=== PATIENT | male | born 1975 | race Caucasian/White ===

== ENCOUNTER 2018-02-11 18:10 | Emergency (ER) | payer OTHER, MEDICAID, SELFPAY ==
[2018-02-11 18:20] VITALS: BP 136/78; PULSE 98; RESP 14; TEMP 36.7; O2SAT 99
--- NOTE | 2018-02-11 18:26 | ED.URI ---
HPI - URI/Sore Throat <IMAN Rajput - Last Filed: 02/11/18 19:54> General Chief Complaint: Upper Respiratory Symptoms Stated Complaint: coughed so hard he vomited,thinks he has streep Time Seen by Provider: 02/11/18 18:31 Source: patient Limitations: no limitations History of Present Illness HPI Narrative: 43-year-old male here for complaint of having cough for the last 3 days. He also states that he has a sore throat. He is concerned that he might have strep throat as he was exposed to a child that was diagnosed with strep throat over the past week and a half. Positive p.o. intake. No nasal congestion. No fevers or chills. He denies any other concerns or complaints. MD Complaint: cough and sore throat Related Data Home Medications Medication Instructions Recorded Confirmed mirtazapine #0 07/15/17 venlafaxine [Effexor XR] #0 07/15/17 Allergies Allergy/AdvReac Type Severity Reaction Status Date / Time No Known Drug Allergies Allergy Verified 02/11/18 18:26 Review of Systems <IMAN Rajput - Last Filed: 02/11/18 19:54> Constitutional Denies chills, Denies fever(s), Denies lethargy and Denies weakness Eyes Denies change in vision, Denies eye discharge, Denies irritation and Denies loss of vision ENT Ears, Nose, Mouth, and Throat: Reports sore throat Cardiovascular Denies chest pain, Denies irregular heart rhythm, Denies lightheadedness, Denies palpitations and Denies orthopnea Respiratory Reports cough Gastrointestinal Gastrointestinal: Denies abdominal pain, Denies change in bowel habits, Denies diarrhea, Denies nausea and Denies vomiting Genitourinary Denies hematuria, Denies flank pain, Denies urinary incontinence and Denies urinary urgency Musculoskeletal Denies back pain, Denies muscle weakness, Denies numbness and Denies tingling Neurologic Denies loss of vision, Denies numbness, Denies tingling and Denies weakness Endocrine Denies palpitations Exam <IMAN Rajput - Last Filed: 02/11/18 19:54> Initial Vital Signs Initial Vital Signs: Vital Signs Temperature 98.1 F 02/11/18 18:20 Pulse Rate 98 H 02/11/18 18:20 Respiratory Rate 14 05/17/18 18:20 Blood Pressure 136/78 H 02/11/18 18:20 Pulse Oximetry 99 02/11/18 18:20 Const General: cooperative and well developed Nutritional Appearance: well nourished Orientation: alert, awake, oriented x3 and not confused HENMT Nose: external nose normal Mouth: oral mucosae normal and moist mucous membranes Throat: posterior oropharynx normal Eyes Sclera: sclerae normal Cornea: corneas normal Pupils: PERRL EOM: EOM intact bilaterally Neck Neck: normal visual inspection, trachea midline, No lymphadenopathy and No midline deformity Lymphatic: No lymphedema Resp Effort & Inspection: normal respiratory effort, able to speak in complete sentences, no respiratory distress and no use of accessory muscles Auscultation: clear to auscultation bilaterally, no rales, no rhonchi and no wheezes Cardio Rate: regular rate Rhythm: regular rhythm Heart Sounds: no click, no gallops, no murmurs and no rubs Pulses: normal peripheral pulses Skin General: no rashes or lesions noted, No jaundice and No petechiae <Mark Zelaya MD - Last Filed: 02/12/18 03:31> Initial Vital Signs Initial Vital Signs: Vital Signs Temperature 98.1 F 02/11/18 18:20 Pulse Rate 98 H 02/11/18 18:20 Respiratory Rate 14 02/11/18 18:20 Blood Pressure 136/78 H 02/11/18 18:20 Pulse Oximetry 99 02/11/18 18:20 Course <IMAN Rajput - Last Filed: 02/11/18 19:54> Vital Signs - 8 hr 02/11/18 18:20 Temperature 98.1 F Pulse Rate 98 H Respiratory Rate 14 Blood Pressure 136/78 H Pulse Oximetry 99 <Mark Zelaya MD - Last Filed: 02/12/18 03:31> Vital Signs - 8 hr 02/11/18 18:20 Temperature 98.1 F Pulse Rate 98 H Respiratory Rate 14 Blood Pressure 136/78 H Pulse Oximetry 99 MDM - URI/Sore Throat <IMAN Rajput - Last Filed: 02/11/18 19:54> MDM Narrative Medical decision making narrative: Rapid strep test was obtained and was unremarkable. Signs and symptoms presents as viral upper respiratory infection. Plenty of rest plenty of fluids [id number] Tylenol or Motrin as needed for any discomfort. Follow up with primary care provider. For any worsening symptoms return to the emergency room. <Mark Zelaya MD - Last Filed: 02/12/18 03:31> Medical Records The [employer] functioned independently for the care of this pt, I was available, but not asked to participate in care. I am unable to determine appropriateness of management without personally examining the pt. Discharge Plan Departure Patient Disposition: Home, Self-Care Clinical Impression: Upper respiratory infection Discharge Date/Time: 02/11/18 19:01 Interventions: ED Discharge Assessment Last Done: 02/11/18 19:00 Instructions: DI for Viral Upper Respiratory Infection -- Adult Activity Restrictions/Additional Instructions: Rapid strep test was obtained and was unremarkable. Signs and symptoms presents as viral upper respiratory infection. Plenty of rest plenty of fluids [id number] Tylenol or Motrin as needed for any discomfort. Follow up with primary care provider. For any worsening symptoms return to the emergency room. Prescriptions: No Action venlafaxine [Effexor XR] 37.5 MG capsule,extended release 24hr Qty: 0 RF: 0 mirtazapine 15 MG tablet,disintegrating Qty: 0 RF: 0 Referrals: [facility] [Provider Group]
== END 2018-02-11 19:01 | disposition home or self-care (01) ==
PROVIDERS: Emergency Provider Nurse Practitioner Family
DX: J06.9 Acute upper respiratory infection, unspecified (principal)
CPT/HCPCS: 87880; 99282

== ENCOUNTER 2021-02-14 14:21 | Emergency (ER) | payer OTHER, MEDICAID, SELFPAY ==
[2021-02-14 14:26] VITALS: BP 183/98; PULSE 123; RESP 24; O2SAT 98; BMI 21.9
[2021-02-14 15:13] LABS: Bacteria Urine None Seen; RBC Urine None Seen (0-5/HPF); WBC Urine None Seen (0-5/HPF)
[2021-02-14] MEDS: ONDANSETRON 4 MG/2 ML INJ IV (15:18)
[2021-02-14 15:19] LABS: Add Manual Diff / Slide Review NO; Basophils Absolute Auto 0 /uL (0-100); Basophils Percent Auto 0.2 % (0-2); Eosinophils Absolute Auto 0 /uL (0-450); Eosinophils Percent Auto 0.2 % (2-4); Hematocrit 47.5 % (41-53); Hemoglobin 15.7 g/dL (13.5-17.5); Lymphocytes Absolute Auto 1300 /uL (1100-4500); Lymphocytes Percent Auto 8.8 % (25-40); Mean Corpuscular Hemoglobin 30.3 PG (26-34); Mean Corpuscular Volume 91.7 fL (80-100); Monocytes Absolute Auto 1100 /uL (0-900); Monocytes Percent Auto 7.2 % (3-14); Neutrophils Absolute Auto 12400 /uL (1500-7000); Neutrophils Percent Auto 83.6 % (50-75); Platelet Count 392 X10^3/uL (150-400); Red Blood Cell Count 5.18 X10^6/uL (4.5-5.9); Red Cell Distribution Width 12.7 % (11.6-14.8); White Blood Cell Count 14.8 X10^3/uL (4.5-11.0)
[2021-02-14] MEDS: SODIUM CHLORIDE 0.9% 1,000 ML 1000 ML IV ×2 (15:20→16:10)
[2021-02-14 15:21] LABS: Appearance Urine UA CLEAR; Bilirubin Urine UA NEGATIVE (NEGATIVE); Color Urine UA YELLOW; Glucose Urine UA NEGATIVE (Negative); Ketones Urine UA NEGATIVE (NEGATIVE); Leukocyte Esterase Urine UA NEGATIVE (NEGATIVE); Nitrite Urine UA NEGATIVE (Negative); Occult Blood Urine UA 1+ (Negative); Protein Urine UA TRACE (Negative); Specific Gravity Urine UA >=1.030 (1.000-1.035); Urobilinogen Urine UA 0.2 E.U./dL (0.2); pH Urine UA 5.5 (4.5-8.0)
[2021-02-14 15:31] LABS: Alanine Aminotransferase 28 IU/L (<50); Albumin 4.5 g/dL (3.5-5.0); Albumin Globulin Ratio 1.5 (1.0-2.8); Alkaline Phosphatase 82 U/L (38-126); Amylase 55 U/L (30-110); Aspartate Aminotransferase 44 IU/L (17-59); BUN Creatinine Ratio 13.7 (6-22); Bilirubin Total 0.8 mg/dL (0.2-1.3); Blood Urea Nitrogen 10 mg/dL (9-20); Calcium 9.7 mg/dL (8.4-10.2); Carbon Dioxide 23 mmol/L (22-32); Chloride 104 mmol/L (98-107); Estimated Glomerular Filt Rate > 60.0 mL/min (>60); Globulin 3.1 g/dL (1.7-4.1); Glucose 95 mg/dL (70-100); HEMOLYSIS 19 (0-50); Lipase 44 U/L (23-300); Potassium 3.6 mmol/L (3.4-5.1); Sodium 137 mmol/L (137-145); Total Protein 7.6 g/dL (6.3-8.2)
[2021-02-14] MEDS: LORazepam 2 MG/ML INJ 1 MG IV (15:31)
[2021-02-14 15:35] LABS: Ur Creatinine Normal (Normal); Ur Specific Gravity Normal (Normal); Urine pH Normal (Normal)
[2021-02-14 15:36] LABS: UR Morphine/Opiate cutoff 300 Negative (Negative); Urine Amphetamines Positive (Negative); Urine Barbiturates Negative (Negative); Urine Benzodiazepines Negative (Negative); Urine Cocaine Negative (Negative); Urine MDMA Positive (Negative); Urine Methadone Negative (Negative); Urine Methamphetamines Positive (Negative); Urine Oxycodone Negative (Negative); Urine Phencyclidine Negative (Negative); Urine Tetrahydrocannabinol Positive (Negative); Urine Tricyclic Antidepressant Negative (Negative)
[2021-02-14 15:53] VITALS: BP 131/83; PULSE 92; RESP 12; O2SAT 98
[2021-02-14 15:57] LABS: COVID19 -Nasal RAPID Negative (Negative)
[2021-02-14 15:59] LABS: Calcium Oxalate Crystals Urine Few; Culture Indicated Urine Cult Not Indicated
--- NOTE | 2021-02-14 16:15 | DI.CT.S_ITS ---
PROCEDURE: CT ABDOMEN PELVIS W CON INDICATIONS: abd pain, tachy TECHNIQUE: After the administration of intravenous contrast, 5 mm thick sections acquired from the diaphragm to the symphysis. 5 mm coronal and sagittal reformats were acquired. For radiation dose reduction, the following was used: automated exposure control, adjustment of mA and/or kV according to patient size. COMPARISON: None. FINDINGS: Image quality: There is extensive motion artifact limiting evaluation. ABDOMEN: Lung bases: There is dependent atelectasis bilaterally. Heart size is normal. Solid organs: Evaluation is markedly limited by motion artifact. No definite focal hepatic lesions identified. The spleen is normal in size. The gallbladder is nondistended and demonstrates no definite calcified gallstones. The pancreas is not well evaluated due to motion artifact. No pancreatic duct dilatation. No adrenal nodules. Kidneys demonstrate no definite hydronephrosis. Peritoneum and bowel: Bowel loops demonstrate grossly normal caliber. No free fluid or air. Nodes and vessels: No retroperitoneal or mesenteric adenopathy by size criteria. Aorta and inferior vena cava are normal in size. Miscellaneous: No ventral hernias. PELVIS: Genitourinary: Bladder wall thickness is grossly normal. Miscellaneous: No inguinal hernias or adenopathy. Bones: No suspicious bony lesions. No vertebral body compression fractures. IMPRESSION: 1. Markedly limited study demonstrates no definite acute intra-abdominal abnormality. If clinical concern persists, consider a repeat study when feasible. Dictated by: Patrice Anderson M.D. on 02/14/2021 at 17:07 Approved by: Patrice Anderson M.D. on 02/14/2021 at 17:12
--- NOTE | 2021-02-14 16:21 | ED.ABDPAIN ---
HPI - Abdominal Pain <DANY Lemus - Last Filed: 02/14/21 20:51> General Chief Complaint: Abdominal Pain Stated Complaint: nausea, vomiting, stomach pain Time Seen by Provider: 02/14/21 15:00 Source: patient Mode of arrival: Ambulatory Limitations: no limitations History of Present Illness HPI narrative: The patient is a 46-year-old male former smoker current methamphetamine user who presents with a chief complaint of sudden onset of abdominal pain at about 1:00 p.m.. He states he smoked and shot methamphetamine prior. The patient states he is nauseous, has vomited, states that his entire abdomen hurts, but denies any chest pain or shortness of breath. The patient is groaning and yelling throughout my evaluation and is a difficult historian. He states his pain is in his lower abdomen. Denies any dysuria urgency or frequency. Does mention that he will ?not punch me in the face. Related Data Home Medications Medication Instructions Recorded Confirmed mirtazapine #0 07/15/17 venlafaxine [Effexor XR] #0 07/15/17 Allergies Allergy/AdvReac Type Severity Reaction Status Date / Time No Known Drug Allergies Allergy Verified 02/11/18 18:26 Review of Systems <DANY Lemus - Last Filed: 02/14/21 20:51> Review of Systems Narrative: GENERAL: See HPI HEENT: Denies sinus pain, ear pain, sore throat, difficulty swallowing, dizziness. RESPIRATORY: Denies dyspnea, cough, wheezing, hemoptysis, sputum. CARDIOVASCULAR: Denies chest pain, palpitations, orthopnea, edema, GASTROINTESTINAL: See HPI : Denies dysuria, frequency, incontinence, hematuria, urinary retention. MUSCULOSKELETAL: denies weakness, joint pain, or bony pain SKIN: Denies rash, skin lesions, or other NEUROLOGIC: Denies weakness, headache, numbness, change in speech, confusion, seizures, incoordination. PSYCHIATRIC: No concerning psychosocial issues. 12 point review of systems is negative except for those stated above Patient History <DANY Lemus - Last Filed: 02/14/21 20:51> Social History Smoking Status: Former smoker Smoking Status: Former smoker alcohol intake frequency: 0-2 drinks per day Substance Use Type: does not use Exam [facility] - Last Filed: 02/14/21 20:51> Narrative Exam Narrative: GENERAL: This is a well-nourished, well-developed patient, in mild distress. HEAD: Atraumatic. Normocephalic. No temporal or scalp tenderness. EYES: Pupils equal round and reactive. Extraocular motions intact. No scleral icterus. No injection or drainage. ENT: Nose without bleeding, purulent drainage or septal hematoma. Airway patent. NECK: Trachea midline. No JVD or lymphadenopathy. Supple, nontender, no meningeal signs. CARDIOVASCULAR: Tachycardic rate and regular rhythm RESPIRATORY: Clear to auscultation. Breath sounds equal bilaterally. No wheezes, rales, or rhonchi. No cough. No increased respiratory effort. No accessory muscle use. GASTROINTESTINAL: Abdomen soft, diffusely tender, nondistended. No hepato-splenomegaly, or palpable masses. No guarding. EXTREMITIES: No clubbing, cyanosis, or edema. No joint tenderness, effusion, or edema noted. BACK: Nontender without deformity or crepitance. No flank tenderness. NEURO: Alert, interactive, tangential pressured speech noted, yelling at times SKIN: No rash or erythema on visible skin Initial Vital Signs Initial Vital Signs: Vital Signs Pulse Rate 123 H 02/14/21 14:26 Respiratory Rate 24 02/14/21 14:26 Blood Pressure 183/98 H 02/14/21 14:26 Pulse Oximetry 98 02/14/21 14:26 <Rudy Wang DO - Last Filed: 02/14/21 21:05> Initial Vital Signs Initial Vital Signs: Vital Signs Pulse Rate 123 H 02/14/21 14:26 Respiratory Rate 24 02/14/21 14:26 Blood Pressure 183/98 H 02/14/21 14:26 Pulse Oximetry 98 02/14/21 14:26 Scores <FAY Lemus - Last Filed: 02/14/21 20:51> [facility] [place] coma scale eye opening: Spontaneous [place] coma scale verbal response: Orientated [place] coma scale motor response: Obey commands [place] coma scale total score: 15 Course <FAY Lemus - Last Filed: 02/14/21 20:51> Orders Ordered: ED Orders 02/14/21 14:37 Amylase Stat Complete Blood Count AUTO DIFF Stat Comprehensive Metabolic Panel Stat Lipase Stat 05/20/21 14:50 Urinalysis and Microscopic Stat Urine Drug Screen, Rapid Stat 02/14/21 15:41 COVID19 -Nasal swab/Pre-Proc Stat 02/14/21 16:15 CT abdomen pelvis w con Stat Discontinued Medications Sodium Chloride (Normal Saline 0.9%) 1,000 mls @ 1,000 mls/hr IV BOLUS ONE Stop: 02/14/21 16:03 Last Infusion: 02/14/21 16:19 Dose: 0 mls/hr Documented by: Admin: 02/14/21 15:20 Dose: 1,000 mls/hr Documented by: ISAIAH Sodium Chloride (Normal Saline 0.9%) 1,000 mls @ 1,000 mls/hr IV BOLUS ONE Stop: 02/14/21 16:03 Last Infusion: 02/14/21 18:02 Dose: 0 mls/hr Documented by: Admin: 02/14/21 16:10 Dose: 1,000 mls/hr Documented by: ISAIAH Lorazepam (Lorazepam 2 Mg/Ml Inj) 1 mg IV NOW ONE Stop: 02/14/21 15:26 Last Admin: 02/14/21 15:31 Dose: 1 mg Documented by: ISAIAH Ondansetron HCl (Ondansetron 4 Mg/2 Ml Inj) 4 mg IV NOW ONE Stop: 02/14/21 15:05 Last Admin: 02/14/21 15:18 Dose: 4 mg Documented by: ISAIAH Vital Signs Vital signs: Vital Signs - 8 hr 02/14/21 14:26 02/14/21 15:53 02/14/21 17:19 Pulse Rate 123 H 92 H 93 H Respiratory Rate 24 12 16 Blood Pressure 183/98 H 131/83 128/60 Pulse Oximetry 98 98 98 02/14/21 18:01 02/14/21 20:00 Pulse Rate 96 H 93 H Respiratory Rate 24 18 Blood Pressure 130/75 132/78 Pulse Oximetry 98 99 <Rudy Wang DO - Last Filed: 02/14/21 21:05> Orders Ordered: ED Orders 02/14/21 14:37 Amylase Stat Complete Blood Count AUTO DIFF Stat Comprehensive Metabolic Panel Stat Lipase Stat 02/14/21 14:50 Urinalysis and Microscopic Stat Urine Drug Screen, Rapid Stat 02/14/21 15:41 COVID19 -Nasal swab/Pre-Proc Stat 02/14/21 16:15 CT abdomen pelvis w con Stat Discontinued Medications Sodium Chloride (Normal Saline 0.9%) 1,000 mls @ 1,000 mls/hr IV BOLUS ONE Stop: 02/14/21 16:03 Last Infusion: 02/14/21 16:19 Dose: 0 mls/hr Documented by: Admin: 02/14/21 15:20 Dose: 1,000 mls/hr Documented by: ISAIAH Sodium Chloride (Normal Saline 0.9%) 1,000 mls @ 1,000 mls/hr IV BOLUS ONE Stop: 02/14/21 16:03 Last Infusion: 02/14/21 18:02 Dose: 0 mls/hr Documented by: Admin: 02/14/21 16:10 Dose: 1,000 mls/hr Documented by: ISAIAH Lorazepam (Lorazepam 2 Mg/Ml Inj) 1 mg IV NOW ONE Stop: 02/14/21 15:26 Last Admin: 02/14/21 15:31 Dose: 1 mg Documented by: ISAIAH Ondansetron HCl (Ondansetron 4 Mg/2 Ml Inj) 4 mg IV NOW ONE Stop: 02/14/21 15:05 Last Admin: 02/14/21 15:18 Dose: 4 mg Documented by: ISAIAH Vital Signs Vital signs: Vital Signs - 8 hr 02/14/21 14:26 02/14/21 15:53 02/14/21 17:19 Pulse Rate 123 H 92 H 93 H Respiratory Rate 24 12 16 Blood Pressure 183/98 H 131/83 128/60 Pulse Oximetry 98 98 98 02/14/21 18:01 02/14/21 20:00 Pulse Rate 96 H 93 H Respiratory Rate 24 18 Blood Pressure 130/75 132/78 Pulse Oximetry 98 99 MDM - Abdominal Pain <FAY Lemus - Last Filed: 02/14/21 20:51> Lab Data Result diagrams: 02/14/21 14:37 02/14/21 14:37 Labs: Lab Results 02/14/21 02/14/21 02/14/21 Range/Units 14:37 14:37 14:50 WBC 14.8 H (4.5-11.0) X10^3/uL RBC 5.18 (4.5-5.9) X10^6/uL Hgb 15.7 (13.5-17.5) g/dL Hct 47.5 (41-53) % MCV 91.7 (80-100) fL MCH 30.3 (26-34) PG MCHC 33.0 (30-36) % RDW 12.7 (11.6-14.8) % Plt Count 392 (150-400) X10^3/uL Neut % (Auto) 83.6 H (50-75) % Lymph % (Auto) 8.8 L (25-40) % [place] % (Auto) 7.2 (3-14) % Eos % (Auto) 0.2 L (2-4) % Baso % (Auto) 0.2 (0-2) % Neut # (Auto) 40142 H (4853-4825) /uL Lymph # (Auto) 1300 (2331-7112) /uL [place] # (Auto) 1100 H (0-900) /uL Eos # (Auto) 0 (0-450) /uL Baso # (Auto) 0 (0-100) /uL Sodium 137 (137-145) mmol/L Potassium 3.6 (3.4-5.1) mmol/L Chloride 104 (98-107) mmol/L Carbon Dioxide 23 (22-32) mmol/L BUN 10 (9-20) mg/dL Creatinine 0.73 (0.66-1.25) mg/dL Estimated GFR > 60.0 (>60) mL/min BUN/Creatinine Ratio 13.7 (6-22) Glucose 95 (70-100) mg/dL Calcium 9.7 (8.4-10.2) mg/dL Total Bilirubin 0.8 (0.2-1.3) mg/dL AST 44 (17-59) IU/L ALT 28 (<50) IU/L Alkaline Phosphatase 82 (38-126) U/L Total Protein 7.6 (6.3-8.2) g/dL Albumin 4.5 (3.5-5.0) g/dL Globulin 3.1 (1.7-4.1) g/dL Albumin/Globulin Ratio 1.5 (1.0-2.8) Amylase 55 (30-110) U/L Lipase 44 (23-300) U/L Urine Color Yellow Urine Appearance Clear Urine pH 5.5 (4.5-8.0) Ur Specific [place] >=1.030 H (1.000-1.035) Urine Protein Trace H (Negative) Urine Glucose (UA) Negative (Negative) g/dL Urine Ketones Negative (NEGATIVE) Urine Occult Blood 1+ H (Negative) Urine Nitrate Negative (Negative) Urine Bilirubin Negative (NEGATIVE) Urine Urobilinogen 0.2 (0.2) E.U./dL Ur Leukocyte Esterase Negative (NEGATIVE) Urine RBC None seen (0-5/HPF) Urine WBC None seen (0-5/HPF) Calcium Oxalate Crystal Few H Urine Bacteria None seen (None) Ur Culture Indicated? Cult not indicated U Opiates 300ng/mL cut (Negative) Ur Oxycodone Screen (Negative) Urine Methadone Screen (Negative) Ur Barbiturates Screen (Negative) U Tricyclic Antidepress (Negative) Ur Phencyclidine Scrn (Negative) Ur Amphetamines Screen (Negative) U Methamphetamines Scrn (Negative) Ur MDMA Scrn (Ecstasy) (Negative) U Benzodiazepines Scrn (Negative) Urine Cocaine Screen (Negative) U Marijuana (THC) Screen (Negative) SARS-CoV-2 (PCR) (Negative) 02/14/21 02/14/21 Range/Units 14:50 15:41 WBC (4.5-11.0) X10^3/uL RBC (4.5-5.9) X10^6/uL Hgb (13.5-17.5) g/dL Hct (41-53) % MCV (80-100) fL MCH (26-34) PG MCHC (30-36) % RDW (11.6-14.8) % Plt Count (150-400) X10^3/uL Neut % (Auto) (50-75) % Lymph % (Auto) (25-40) % [place] % (Auto) (3-14) % Eos % (Auto) (2-4) % Baso % (Auto) (0-2) % Neut # (Auto) (2705-8879) /uL Lymph # (Auto) (4918-0771) /uL [place] # (Auto) (0-900) /uL Eos # (Auto) (0-450) /uL Baso # (Auto) (0-100) /uL Sodium (137-145) mmol/L Potassium (3.4-5.1) mmol/L Chloride (98-107) mmol/L Carbon Dioxide (22-32) mmol/L BUN (9-20) mg/dL Creatinine (0.66-1.25) mg/dL Estimated GFR (>60) mL/min BUN/Creatinine Ratio (6-22) Glucose (70-100) mg/dL Calcium (8.4-10.2) mg/dL Total Bilirubin (0.2-1.3) mg/dL AST (17-59) IU/L ALT (<50) IU/L Alkaline Phosphatase (38-126) U/L Total Protein (6.3-8.2) g/dL Albumin (3.5-5.0) g/dL Globulin (1.7-4.1) g/dL Albumin/Globulin Ratio (1.0-2.8) Amylase (30-110) U/L Lipase (23-300) U/L Urine Color Urine Appearance Urine pH (4.5-8.0) Ur Specific [place] (1.000-1.035) Urine Protein (Negative) Urine Glucose (UA) (Negative) g/dL Urine Ketones (NEGATIVE) Urine Occult Blood (Negative) Urine Nitrate (Negative) Urine Bilirubin (NEGATIVE) Urine Urobilinogen (0.2) E.U./dL Ur Leukocyte Esterase (NEGATIVE) Urine RBC (0-5/HPF) Urine WBC (0-5/HPF) Calcium Oxalate Crystal Urine Bacteria (None) Ur Culture Indicated? U Opiates 300ng/mL cut Negative (Negative) Ur Oxycodone Screen Negative (Negative) Urine Methadone Screen Negative (Negative) Ur Barbiturates Screen Negative (Negative) U Tricyclic Antidepress Negative (Negative) Ur Phencyclidine Scrn Negative (Negative) Ur Amphetamines Screen Positive H (Negative) U Methamphetamines Scrn Positive H (Negative) Ur MDMA Scrn (Ecstasy) Positive H (Negative) U Benzodiazepines Scrn Negative (Negative) Urine Cocaine Screen Negative (Negative) U Marijuana (THC) Screen Positive H (Negative) SARS-CoV-2 (PCR) Negative (Negative) Imaging Data CT scan - abdomen/pelvis: Radiologist's Impression: [address] [place] [id number] Scan ReportSigned Patient: Mendoza Cardenas DMR#: [id number]: 1975Acct:[id number]/Sex: 46 / MDate of Service: 02/14/21Loc: EDAccession Number: [id number] Procedure: CT abdomen pelvis w con Ordering Provider: Slime Mcmillan BODY WIRER- PROCEDURE: CT ABDOMEN PELVIS W CON INDICATIONS: abd pain, tachy TECHNIQUE: After the administration of intravenous contrast, 5 mm thick sections acquired from the diaphragm to the symphysis. 5 mm coronal and sagittal reformats were acquired. For radiation dose reduction, the following was used: automated exposure control, adjustment of mA and/or kV according to patient size. COMPARISON: None. FINDINGS: Image quality: There is extensive motion artifact limiting evaluation. ABDOMEN: Lung bases: There is dependent atelectasis bilaterally. Heart size is normal. Solid organs: Evaluation is markedly limited by motion artifact. No definite focal hepatic lesions identified. The spleen is normal in size. The gallbladder is nondistended and demonstrates no definite calcified gallstones. The pancreas is not well evaluated due to motion artifact. No pancreatic duct dilatation. No adrenal nodules. Kidneys demonstrate no definite hydronephrosis. Peritoneum and bowel: Bowel loops demonstrate grossly normal caliber. No free fluid or air. Nodes and vessels: No retroperitoneal or mesenteric adenopathy by size criteria. Aorta and inferior vena cava are normal in size. Miscellaneous: No ventral hernias. PELVIS: Genitourinary: Bladder wall thickness is grossly normal. Miscellaneous: No inguinal hernias or adenopathy. Bones: No suspicious bony lesions. No vertebral body compression fractures. IMPRESSION: 1. Markedly limited study demonstrates no definite acute intra-abdominal abnormality. If clinical concern persists, consider a repeat study when feasible. Dictated by: Patrice Anderson M.D. on 02/14/2021 at 17:07 Approved by: Patrice Anderson M.D. on 02/14/2021 at 17:12 [facility] Narrative Medical decision making narrative: The patient is a 46-year-old male who presents with a chief complaint of abdominal pain. He admits to drug use prior to arrival. He is initially very tachycardic, though that could be related to his methamphetamine use. Given his tachycardia combined with being a difficult historian, negative CT abdomen pelvis to rule out a get an acute etiology. This resulted negative. The patient's drug screen resulted positive for THC, MDMA, methamphetamine. I did attempt to encourage the patient to follow up with primary care provider in the next few days as well as strict ER return precautions. A ride was secured for the patient upon his discharge. The patient later declined his ride, stated that he would punch nurses. He is medically clear at this point. Nursing called PD after discussing with me and Dr. Wang and pd is to come and remove the patient from the department. <Rudy Wang, DO - Last Filed: 02/14/21 21:05> Lab Data Labs: Lab Results 02/14/21 02/14/21 02/14/21 Range/Units 14:37 14:37 14:50 WBC 14.8 H (4.5-11.0) X10^3/uL RBC 5.18 (4.5-5.9) X10^6/uL Hgb 15.7 (13.5-17.5) g/dL Hct 47.5 (41-53) % MCV 91.7 (80-100) fL MCH 30.3 (26-34) PG MCHC 33.0 (30-36) % RDW 12.7 (11.6-14.8) % Plt Count 392 (150-400) X10^3/uL Neut % (Auto) 83.6 H (50-75) % Lymph % (Auto) 8.8 L (25-40) % [place] % (Auto) 7.2 (3-14) % Eos % (Auto) 0.2 L (2-4) % Baso % (Auto) 0.2 (0-2) % Neut # (Auto) 85466 H (6109-0401) /uL Lymph # (Auto) 1300 (9395-6202) /uL [place] # (Auto) 1100 H (0-900) /uL Eos # (Auto) 0 (0-450) /uL Baso # (Auto) 0 (0-100) /uL Sodium 137 (137-145) mmol/L Potassium 3.6 (3.4-5.1) mmol/L Chloride 104 (98-107) mmol/L Carbon Dioxide 23 (22-32) mmol/L BUN 10 (9-20) mg/dL Creatinine 0.73 (0.66-1.25) mg/dL Estimated GFR > 60.0 (>60) mL/min BUN/Creatinine Ratio 13.7 (6-22) Glucose 95 (70-100) mg/dL Calcium 9.7 (8.4-10.2) mg/dL Total Bilirubin 0.8 (0.2-1.3) mg/dL AST 44 (17-59) IU/L ALT 28 (<50) IU/L Alkaline Phosphatase 82 (38-126) U/L Total Protein 7.6 (6.3-8.2) g/dL Albumin 4.5 (3.5-5.0) g/dL Globulin 3.1 (1.7-4.1) g/dL Albumin/Globulin Ratio 1.5 (1.0-2.8) Amylase 55 (30-110) U/L Lipase 44 (23-300) U/L Urine Color Yellow Urine Appearance Clear Urine pH 5.5 (4.5-8.0) Ur Specific [place] >=1.030 H (1.000-1.035) Urine Protein Trace H (Negative) Urine Glucose (UA) Negative (Negative) g/dL Urine Ketones Negative (NEGATIVE) Urine Occult Blood 1+ H (Negative) Urine Nitrate Negative (Negative) Urine Bilirubin Negative (NEGATIVE) Urine Urobilinogen 0.2 (0.2) E.U./dL Ur Leukocyte Esterase Negative (NEGATIVE) Urine RBC None seen (0-5/HPF) Urine WBC None seen (0-5/HPF) Calcium Oxalate Crystal Few H Urine Bacteria None seen (None) Ur Culture Indicated? Cult not indicated U Opiates 300ng/mL cut (Negative) Ur Oxycodone Screen (Negative) Urine Methadone Screen (Negative) Ur Barbiturates Screen (Negative) U Tricyclic Antidepress (Negative) Ur Phencyclidine Scrn (Negative) Ur Amphetamines Screen (Negative) U Methamphetamines Scrn (Negative) Ur MDMA Scrn (Ecstasy) (Negative) U Benzodiazepines Scrn (Negative) Urine Cocaine Screen (Negative) U Marijuana (THC) Screen (Negative) SARS-CoV-2 (PCR) (Negative) 02/14/21 02/14/21 Range/Units 14:50 15:41 WBC (4.5-11.0) X10^3/uL RBC (4.5-5.9) X10^6/uL Hgb (13.5-17.5) g/dL Hct (41-53) % MCV (80-100) fL MCH (26-34) PG MCHC (30-36) % RDW (11.6-14.8) % Plt Count (150-400) X10^3/uL Neut % (Auto) (50-75) % Lymph % (Auto) (25-40) % [place] % (Auto) (3-14) % Eos % (Auto) (2-4) % Baso % (Auto) (0-2) % Neut # (Auto) (7918-1289) /uL Lymph # (Auto) (5196-0423) /uL [place] # (Auto) (0-900) /uL Eos # (Auto) (0-450) /uL Baso # (Auto) (0-100) /uL Sodium (137-145) mmol/L Potassium (3.4-5.1) mmol/L Chloride (98-107) mmol/L Carbon Dioxide (22-32) mmol/L BUN (9-20) mg/dL Creatinine (0.66-1.25) mg/dL Estimated GFR (>60) mL/min BUN/Creatinine Ratio (6-22) Glucose (70-100) mg/dL Calcium (8.4-10.2) mg/dL Total Bilirubin (0.2-1.3) mg/dL AST (17-59) IU/L ALT (<50) IU/L Alkaline Phosphatase (38-126) U/L Total Protein (6.3-8.2) g/dL Albumin (3.5-5.0) g/dL Globulin (1.7-4.1) g/dL Albumin/Globulin Ratio (1.0-2.8) Amylase (30-110) U/L Lipase (23-300) U/L Urine Color Urine Appearance Urine pH (4.5-8.0) Ur Specific [place] (1.000-1.035) Urine Protein (Negative) Urine Glucose (UA) (Negative) g/dL Urine Ketones (NEGATIVE) Urine Occult Blood (Negative) Urine Nitrate (Negative) Urine Bilirubin (NEGATIVE) Urine Urobilinogen (0.2) E.U./dL Ur Leukocyte Esterase (NEGATIVE) Urine RBC (0-5/HPF) Urine WBC (0-5/HPF) Calcium Oxalate Crystal Urine Bacteria (None) Ur Culture Indicated? U Opiates 300ng/mL cut Negative (Negative) Ur Oxycodone Screen Negative (Negative) Urine Methadone Screen Negative (Negative) Ur Barbiturates Screen Negative (Negative) U Tricyclic Antidepress Negative (Negative) Ur Phencyclidine Scrn Negative (Negative) Ur Amphetamines Screen Positive H (Negative) U Methamphetamines Scrn Positive H (Negative) Ur MDMA Scrn (Ecstasy) Positive H (Negative) U Benzodiazepines Scrn Negative (Negative) Urine Cocaine Screen Negative (Negative) U Marijuana (THC) Screen Positive H (Negative) SARS-CoV-2 (PCR) Negative (Negative) Discharge Plan Departure Patient Disposition: Home Clinical Impression: Medical clearance for incarceration Abdominal pain Qualifiers: Abdominal location: generalized Qualified Code(s): R10.84 - Generalized abdominal pain Instructions: DI for Abdominal Pain-Adult Activity Restrictions/Additional Instructions: Thank you for trusting us with your care today. Your imaging resulted with no acute findings. However your initial high heart rate could be related to your drug use. Please do not use drugs such as methamphetamine or MDMA. I have given you contact information to the [facility] health global human resources director. They can help you find a primary care provider. Please come back to the emergency department for any acute concerns such as inability keep down fluids, abdominal pain with fever etcetera Patient is fit for confinement Prescriptions: No Action venlafaxine [Effexor XR] 37.5 MG capsule,extended release 24hr Qty: 0 RF: 0 mirtazapine 15 MG tablet,disintegrating Qty: 0 RF: 0 Referrals: [facility] [Outside] <Rudy Wang DO - Last Filed: 02/14/21 21:05> Cosign ED Attending Cosignature Attestation: Agree with above assessment. Discharged home
[2021-02-14 17:19] VITALS: BP 128/60; PULSE 93; RESP 16; O2SAT 98
[2021-02-14 18:01] VITALS: BP 130/75; PULSE 96; RESP 24; O2SAT 98
[2021-02-14 20:00] VITALS: BP 132/78; PULSE 93; RESP 18; O2SAT 99
--- NOTE | 2021-02-14 20:35 | PC.NURSE ---
Pt came to CT uncooperative kicked CT Gantry throughout the exam, took 3 techs to get patient onto exam table, would not follow ANY instructions and told us to fuck off
--- NOTE | 2021-02-14 20:50 | PC.NURSE ---
Pt was discharged but refused to leave the ED.pts friend was here to pick him up. Pt told staff that he was going to hurt the next person that came near him . Police were called to the ED which he still refused to leave. The police trespassed him,he continued to refuse to leave. They told him that he would be arrested. Pt states If you discharge me and I go kill myself you are liable. Dr Wang made aware. Dr Wang wrote in discharge instruction that the patient was medically clear and fit for longterm. Police handcuffed patient on stretcher after he refused to walk out with them. They rolled him out to their car on stretcher. Pt stood from stretcher and walked to [employer] vehicle. Pt continued to yell and threaten to hit his head on the window.
--- NOTE | 2021-02-14 20:53 | PC.NURSE ---
Pt medically cleared and ready for discharge. pt lying on stretcher and refusing to talk to RN. pt refusing to leave. assisted with another RN to help dress patient as pt was undressed from the waist down. Pt trying to kick nurses. states the next person that touches me i am going to stab Pt's nephew in ED as a ride and assisted to help patient leave. Security called and at bedside. [employer] called to help facilitate departure. Pt refusing and states if you make me leave i will just walk out in front of a car and if i kill myself, youre liable. Dr Wang made aware of situation and deemed pt fit for [facility]. Pt was assisted out of ED by [employer] on stretcher. Pt ambulated himself from stretcher to the back of the [employer] car without assistance or injury.
--- NOTE | 2021-02-14 20:58 | PC.NURSE ---
Patient was informed by hospital staff that he was discharged. Pt laying in bed, eyes closed, ignoring staff. Required assistance x2 by staff (including this RN) to put pants on while resisting heavily. Pt continued to ignore staff during discharge attempt, stated I'll stab the next person who tries to touch me. PD called, encouraged pt to leave department peacefully. Pt continued to be resistant and threatening, laying in bed and refusing to move. When pt was informed that he would be trespassed and removed from the property pt replied Well then now I'm suicidal. I'll walk out in front of a car if you make me leave. I'm suicidal now.
== END 2021-02-14 21:12 | disposition home or self-care (01) ==
PROVIDERS: Emergency Provider Nurse Practitioner Family
DX: Z02.89 Encounter for other administrative examinations (principal); R10.84 Generalized abdominal pain; R11.2 Nausea with vomiting, unspecified; Z20.822 Contact with and (suspected) exposure to COVID-19
CPT/HCPCS: 36415; 74177; 80053; 80305; 81001; 82150; 83690; 85025; 87635; 96361; 96374; 96375; 99284; C9803; J2060; J2405; Q9967